=== PATIENT | male | born 1970 | race Caucasian/White ===

== ENCOUNTER 2022-11-08 19:24 | Emergency (ER) | payer MEDICAID ==
[~2022-11-08] VITALS: Ht 188 cm; Wt 70.3 kg
--- NOTE | 2022-11-08 20:44 | NUR ---
REPOSSESSOR AT PT'S BEDSIDE
[2022-11-08] MEDS ORDERED: FAMOTIDINE (20 MG) 20 MG TABLET PO ONE (21:00)
[2022-11-08] MEDS ORDERED: ONDANSETRON 4 MG TAB.RAPDIS SL ONE (21:00)
[2022-11-08] MEDS ORDERED: MAG HYDROX/AL HYDROX/SIMETH 30 ML UDC PO ONE (21:00)
[2022-11-08] MEDS ORDERED: LIDOCAINE VISCOUS 2% UD 15 ML UDC MM ONE (21:00)
[2022-11-08] MEDS ORDERED: MAG HYDROX/AL HYDROX/SIMETH 30 ML UDC ONE (21:02)
[2022-11-08] MEDS ORDERED: LIDOCAINE VISCOUS 2% UD 15 ML UDC ONE (21:02)
[2022-11-08] MEDS ORDERED: ONDANSETRON 4 MG TAB.RAPDIS ONE (21:03)
[2022-11-08] MEDS ORDERED: FAMOTIDINE (20 MG) 20 MG TABLET ONE (21:03)
--- NOTE | 2022-11-08 21:23 | NUR ---
COVID ANTIGEN AND INFLUENZA SWAB COLLECTED AND SENT TO LAB
--- NOTE | 2022-11-08 21:23 | NUR ---
PT WANT TO CONSULT WITH EMERGENCY CONTACT BEFORE BLOOD DRAW; LAB AWARE.
--- NOTE | 2022-11-08 22:01 | NUR ---
PT REFUSED BLOODDRAW; DR BRETT ANDERSON AWARE
--- NOTE | 2022-11-08 22:06 | NUR ---
[facility] [phone]
[2022-11-08] MEDS ORDERED: IBUP-1955 PO (22:47)
[2022-11-08 23:53] VITALS: BP 137/90
== END 2022-11-08 22:06 | disposition home or self-care (01) ==
LOC: ER 19:44
DX: J02.9 Acute pharyngitis, unspecified (principal); R10.9 Unspecified abdominal pain; Z79.899 Other long term (current) drug therapy; Z20.822 Contact with and (suspected) exposure to COVID-19
CPT/HCPCS: 99284; 71045; 87426; 87804 ×2; C9803; Q0162